=== PATIENT | male | born 1940 | race Caucasian/White ===

== ENCOUNTER 2017-04-13 19:04 | Emergency (ER) | payer MEDICARE ==
[2017-04-13 20:12] VITALS: BP 181/98
--- NOTE | 2017-04-13 20:43 | EDM.PDOC ---
ED HPI GENERAL MEDICAL PROBLEM - General Chief Complaint: Genitourinary Problem Stated Complaint: BLEEDING FROM PENIS Time Seen by Provider: 04/13/17 20:32 Source of Information: Reports: Patient, RN Notes Reviewed History Limitations: Reports: No Limitations - History of Present Illness INITIAL COMMENTS - FREE TEXT/NARRATIVE: 76-year-old gentleman presents emergency department day complaint of bloody urine, he notices really developed over the last 24 hours he also has urinary frequency does have a history of prostate cancer status post prostatectomy denies any fevers back pain or abdominal discomfort - Related Data Allergies Allergy/AdvReac Type Severity Reaction Status Date / Time No Known Allergies Allergy Verified 04/02/15 13:16 Home Meds: Home Meds Aspirin [Regino Chewable Aspirin] 81 mg PO DAILY 04/02/15 [History] Hydrochlorothiazide 25 mg PO DAILY 04/02/15 [History] Lisinopril 20 mg PO DAILY 04/02/15 [History] Simvastatin [Zocor] 40 mg PO DAILY 04/02/15 [History] Zolpidem [Ambien] 10 mg PO BEDTIME 04/02/15 [History] Past Medical History Other Genitourinary History: urinary retention, penn removed yesterday AM Social & Family History - Tobacco Use Smoking Status *Q: Current Every Day Smoker Years of Tobacco use: 60 - Recreational Drug Use Recreational Drug Use: No ED ROS GENERAL - Review of Systems Review Of Systems: See Below Constitutional: Denies: Fever, Chills HEENT: Reports: No Symptoms Respiratory: Reports: No Symptoms Cardiovascular: Reports: No Symptoms GI/Abdominal: Reports: No Symptoms : Reports: Frequency, Hematuria ED EXAM, RENAL/ - Physical Exam Exam: See Below Exam Limited By: No Limitations General Appearance: Alert, WD/WN, No Apparent Distress GI/Abdominal: Soft, Non-Tender (Male) Exam: No Hernia, Normal Inspection, Circumcised. No: Scrotum Tenderness (L), Scrotum Tenderness (R) Course - Vital Signs Last Recorded V/S: Last Vital Signs Temp 97.4 F 04/13/17 20:10 Pulse 85 04/13/17 20:10 Resp 16 04/13/17 20:10 BP 181/98 H 04/13/17 20:10 Pulse Ox 92 L 04/13/17 20:10 - Orders/Labs/Meds Orders: Active Orders 24 hr Category Date Time Status CULTURE URINE [RM] Urgent Lab 04/13/17 20:43 Uncollected Labs: Laboratory Tests 04/13/17 Range/Units 20:18 Urine Color Red Urine Appearance Turbid Urine pH 7.0 (4.5-8.0) Ur Specific [place] 1.015 (1.008-1.030) Urine Protein 500 H (NEGATIVE) mg/dL Urine Glucose (UA) Normal (NEGATIVE) mg/dL Urine Ketones Negative (NEGATIVE) mg/dL Urine Occult Blood Large (NEGATIVE) Urine Nitrite Positive H (NEGAITVE) Urine Bilirubin Negative (NEGATIVE) Urine Urobilinogen 1 (NORMAL) mg/dL Ur Leukocyte Esterase Large (NEGATIVE) Urine RBC Packed H (0-5) Urine WBC Packed H (0-5) Ur Epithelial Cells Not seen Amorphous Sediment Not seen Urine Bacteria Few Urine Mucus Not seen Urine Other Departure - Departure Time of Disposition: 20:47 Disposition: Home, Self-Care 01 Condition: Good Clinical Impression: UTI (urinary tract infection) Qualifiers: Urinary tract infection type: acute cystitis Hematuria presence: with hematuria Qualified Code(s): N30.01 - Acute cystitis with hematuria - Discharge Information Forms: ED Department Discharge Additional Instructions: Take full course of antibiotics, Please followup with your primary care provider in 3-5 days if not better, please call return to the emergency department with worsening of symptoms. - My Orders Last 24 Hours: My Active Orders 04/13/17 20:43 CULTURE URINE [RM] Urgent - Assessment/Plan Last 24 Hours: My Active Orders 04/13/17 20:43 CULTURE URINE [RM] Urgent Plan: Assessment Acuity = acute Site and laterality = urinary tract infection complicated patient with known history of prostate cancer bacterial cause probably secondary to decreased Etiology = probable bacterial cause secondary to decreased flow Manifestations = hematuria Location of injury = Home Lab values = urinalysis reveals packed red blood cells consistent with hematuria , packed WBCs consistent with pyuria and positive for nitrates Plan Placed on ciprofloxacin 500 by mouth twice a day 10 days follow-up with primary care in 3-5 days for reevaluation Patient was in agreement with the plan all questions were answered, they were instructed to return to the emergency department or call for worsening symptoms. This note was dictated using [employer] voice recognition software please call with any questions.
== END 2017-04-13 21:00 | disposition home or self-care (01) ==
LOC: JP.ED 19:04
DX: N30.01 Acute cystitis with hematuria (principal); F17.210 Nicotine dependence, cigarettes, uncomplicated; Z79.82 Long term (current) use of aspirin; Z79.899 Other long term (current) drug therapy; Z85.46 Personal history of malignant neoplasm of prostate; Z90.79 Acquired absence of other genital organ(s)
CPT/HCPCS: 81001; 87086; 87088; 87186; 99283; 99284

== ENCOUNTER 2017-06-17 14:13 | Emergency (ER) | payer MEDICARE ==
[2017-06-17 14:38] VITALS: BP 170/111
--- NOTE | 2017-06-17 14:54 | EDM.PDOC ---
ED HPI GENERAL MEDICAL PROBLEM - General Chief Complaint: Skin Complaint Stated Complaint: RASH NOT GETTING BETTER Time Seen by Provider: 06/17/17 14:40 Source of Information: Reports: Patient History Limitations: Reports: No Limitations - History of Present Illness INITIAL COMMENTS - FREE TEXT/NARRATIVE: 76-year-old male was at a rash on his arms and legs for the past month. He's been putting some topical triamcinolone on the rash but it's not working. It is pruritic, not warm and he has not been running fevers. He has erythematous rashes with blistering on both elbows, and scattered small red macular rashes on both his lower legs. He feels healthy otherwise, he is not diabetic. Onset: Unknown/Unsure (Symptoms been present for over a month) Severity: Mild Associated Symptoms: Reports: No Other Symptoms - Related Data Allergies Allergy/AdvReac Type Severity Reaction Status Date / Time No Known Allergies Allergy Verified 06/17/17 14:31 Home Meds: Home Meds Aspirin [Regino Chewable Aspirin] 81 mg PO DAILY 04/02/15 [History] Hydrochlorothiazide 25 mg PO DAILY 04/02/15 [History] Lisinopril 20 mg PO DAILY 04/02/15 [History] Simvastatin [Zocor] 40 mg PO DAILY 04/02/15 [History] Zolpidem [Ambien] 10 mg PO BEDTIME 04/02/15 [History] Past Medical History HEENT History: Reports: Impaired Vision Cardiovascular History: Reports: High Cholesterol, Hypertension Genitourinary History: Reports: Other (See Below) Other Genitourinary History: urinary retention, penn removed yesterday AM Oncologic (Cancer) History: Reports: Prostate Dermatologic History: Reports: Other (See Below) Other Dermatologic History: rash - Infectious Disease History Infectious Disease History: Reports: Measles - Past Surgical History GI Surgical History: Reports: Colonoscopy Male Surgical History: Reports: Prostatectomy Social & Family History - Tobacco Use Smoking Status *Q: Current Every Day Smoker Years of Tobacco use: 60 Packs/Tins Daily: 1 Used Tobacco, but Quit: No Second Hand Smoke Exposure: Yes - Caffeine Use Caffeine Use: Reports: Coffee - Recreational Drug Use Recreational Drug Use: No ED ROS GENERAL - Review of Systems Review Of Systems: See Below Constitutional: Denies: Fever, Chills, Malaise Respiratory: Denies: Shortness of Breath, Cough Cardiovascular: Denies: Chest Pain GI/Abdominal: Denies: Abdominal Pain, Diarrhea, Nausea, Vomiting Neurological: Denies: Headache ED EXAM, SKIN/RASH Exam: See Below Exam Limited By: No Limitations General Appearance: Alert, No Apparent Distress Respiratory/Chest: No Respiratory Distress, Lungs Clear Cardiovascular: Regular Rate, Rhythm Neurological: Alert, Oriented Psychiatric: Normal Affect, Normal Mood Skin: Other (Patient has an irregular rash on both extensor surfaces of the elbows. It is erythematous, thickened with some blistering. It is not warm.) Course - Vital Signs Last Recorded V/S: Last Vital Signs Temp 98.8 F 06/17/17 14:37 Pulse 68 06/17/17 14:37 Resp 16 06/17/17 14:37 BP 170/111 H 06/17/17 14:37 Pulse Ox 96 06/17/17 14:37 - Re-Assessments/Exams Free Text/Narrative Re-Assessment/Exam: 06/17/17 14:53 He appears to have some type persistent contact dermatitis of the elbows. We will try oral prednisone at 50 mg a day for 6 contiguous days. I would like him to recheck with his primary care provider later this week as he may need a dermatology consult or biopsy. Departure - Departure Time of Disposition: 15:05 Disposition: Home, Self-Care 01 Condition: Good Clinical Impression: Contact dermatitis Qualifiers: Contact dermatitis type: unspecified Contact dermatitis trigger: unspecified trigger Qualified Code(s): L25.9 - Unspecified contact dermatitis, unspecified cause - Discharge Information Instructions: Rash Referrals: Farhan Cornell MD [Primary Care Provider] - Forms: ED Department Discharge Care Plan Goals: Take 5 pills of prednisone with your first food daily for 6 days in a row. Recheck with Dr. Cornell on or Sunday of next week so he can monitor your progress. You may need a referral to a waste collection driver or further testing.
== END 2017-06-17 15:05 | disposition home or self-care (01) ==
LOC: JP.ED 14:13
DX: L25.9 Unspecified contact dermatitis, unspecified cause (principal); I10 Essential (primary) hypertension; E78.00 Pure hypercholesterolemia, unspecified; F17.210 Nicotine dependence, cigarettes, uncomplicated; Z85.46 Personal history of malignant neoplasm of prostate; Z90.79 Acquired absence of other genital organ(s); Z98.890 Other specified postprocedural states; Z79.82 Long term (current) use of aspirin; Z79.899 Other long term (current) drug therapy
CPT/HCPCS: 99283